=== PATIENT | male | born 1975 | race African-American/Black ===

== ENCOUNTER 2017-12-09 20:05 | Emergency (ER) | payer OTHER ==
[~2017-12-09] VITALS: Ht 177.8 cm; Wt 224.5 kg
[2017-12-09 20:24] VITALS: Ht 177.8 cm; Wt 224.5 kg
[2017-12-09 20:47] VITALS: BP 140/98
== END 2017-12-09 20:47 | disposition other institution (70) ==
LOC: ED 20:05
DX: Z02.89 Encounter for other administrative examinations (principal); I10 Essential (primary) hypertension; E11.9 Type 2 diabetes mellitus without complications